=== PATIENT | male | born 1975 | race American Indian/Alaskan Native ===

== ENCOUNTER 2019-11-29 21:33 | Emergency (ER) | payer SELFPAY ==
[2019-11-29 21:45] VITALS: BP 144/84
--- NOTE | 2019-11-29 23:53 | XRay Report ---
EXAMINATION: Right knee radiograph, 3 views CLINICAL INFORMATION: Right knee pain and swelling. Knee injury one week ago COMPARISON: None. FINDINGS: There is no evidence of acute bony fracture or focal soft tissue swelling of the right knee . There are mild bony degenerative changes of the patella. Signer Name: Nette Ruiz MD Signed: 11/29/2019 11:49 PM Workstation Name: [id number]
--- NOTE | 2019-11-30 00:03 | Emergency Department Report ---
ED Lower Extremity HPI - General Chief Complaint: Extremity Injury, Lower Stated Complaint: KNEE PAIN Time Seen by Provider: 11/29/19 23:50 Source: patient Mode of arrival: Ambulatory Limitations: No Limitations - History of Present Illness Initial Comments: Patient is a 43-year-old male that presents emergency room with complaints of right knee pain and swelling for a week. Patient states he was working and twisted his knee while washing a car. Patient states the pain is an 8 out of 10. Pain states the pain is worse with movement better with rest. Patient states he is taking 200 mg twice in the last week. Patient states he got some relief from the ibuprofen. Patient denies chest pain or shortness of breath. Patient denies fall. Patient denies trauma. MD Complaint: knee injury -: Sudden Injury: Knee: Right Type of Injury: inversion Place: work Severity: severe Severity scale (0 -10): 8 Improves With: NSAID, immobilization, rest Worsens With: weight bearing, movement, palpation Context: other Associated Symptoms: swelling, able to partially bear weight. denies: snap/pop sensation, numbness, tingling, unable to bear weight, ambulatory - Related Data Previous Rx's Medication Instructions Recorded Last Taken Type Ibuprofen [Motrin 800 MG tab] 800 mg PO Q8HR PRN #30 tablet 11/30/19 Unknown Rx Allergies Allergy/AdvReac Type Severity Reaction Status Date / Time No Known Allergies Allergy Unverified 11/29/19 21:45 ED Review of Systems ROS: Stated complaint: KNEE PAIN Other details as noted in HPI Comment: All other systems reviewed and negative ED Past Medical Hx - Past Medical History Previous Medical History?: No - Surgical History Past Surgical History?: No - Family History Family history: no significant - Social History Smoking Status: Current Every Day Smoker Substance Use Type: None - Medications Home Medications: Home Medications Medication Instructions Recorded Confirmed Last Taken Type Ibuprofen [Motrin 800 MG tab] 800 mg PO Q8HR PRN #30 tablet 11/30/19 Unknown Rx ED Physical Exam - General Limitations: No Limitations General appearance: alert, in no apparent distress - Head Head exam: Present: atraumatic, normocephalic - Eye Eye exam: Present: normal appearance - ENT ENT exam: Present: mucous membranes moist - Neck Neck exam: Present: normal inspection - Respiratory Respiratory exam: Present: normal lung sounds bilaterally. Absent: respiratory distress, wheezes, rales, rhonchi - Cardiovascular Cardiovascular Exam: Present: regular rate, normal rhythm. Absent: systolic murmur, diastolic murmur, rubs, gallop - GI/Abdominal GI/Abdominal exam: Present: soft, normal bowel sounds - Rectal Rectal exam: Present: deferred - Extremities Exam Extremities exam: Present: normal inspection (Except right knee), full ROM (Except right knee), tenderness (Right knee tenderness to palpation), joint swelling (Right knee swelling) - Back Exam Back exam: Present: normal inspection - Neurological Exam Neurological exam: Present: alert, oriented X3 - Psychiatric Psychiatric exam: Present: normal affect, normal mood - Skin Skin exam: Present: warm, dry, intact, normal color. Absent: rash ED Course Vital Signs 11/29/19 21:39 Temperature 98.7 F Pulse Rate 91 H Respiratory 18 Rate Blood Pressure 144/84 O2 Sat by Pulse 98 Oximetry - Reevaluation(s) Reevaluation #1: I discussed all results and clinical findings with patient. I discussed plan of care with patient. Patient agrees with plan of care. Patient is stable for discharge. Patient will be discharged home. Patient given discharge instru ctions. Patient voiced understanding of discharge instructions. 11/30/19 00:02 ED Lower Extremity MDM - Radiology Data Radiology results: report reviewed, image reviewed interpreted by me: EXAMINATION: Right knee radiograph, 3 views CLINICAL INFORMATION: Right knee pain and swelling. Knee injury one week ago COMPARISON: None. FINDINGS: There is no evidence of acute bony fracture or focal soft tissue swelling of the right knee. There are mild bony degenerative changes of the patella - Medical Decision Making Patient is a 43-year-old male that presents emergency room with complaints of right knee swelling and pain. Patient had x-ray which was negative for acute f indings. Patient is stable for discharge. Patient be discharged home. Patient is to follow-up with an orthopedist and his primary care soon as possible. Patient needs to take ibuprofen and apply an Pa wrap. - Differential Diagnosis Knee sprain, knee pain, sprain, strain, fracture Critical care attestation.: If time is entered above; I have spent that time in minutes in the direct care of this critically ill patient, excluding procedure time. ED Disposition Clinical Impression: Knee sprain, Knee pain Disposition: TO HOME OR SELFCARE Is pt being admited?: No Does the pt Need Aspirin: No Condition: Stable Instructions: Knee Pain (ED), Knee Sprain (ED) Additional Instructions: Patient to follow-up with primary care in 2 to 3 days. Patient to follow-up with orthopedist in 2 to 3 days. Patient to rest. Patient to increase water. Patient to avoid strenuous exercise or heavy lifting until cleared by orthopedist. Patient to take Tylenol or ibuprofen as needed for pain. Patient to take meds as directed. Patient to return to the ER if condition worsens, changes or new symptoms arise. Prescriptions: Ibuprofen [Motrin 800 MG tab] 800 mg PO Q8HR PRN #30 tablet PRN Reason: pain Referrals: PRIMARY CAREMD [Primary Care Provider] - 2-3 Days ALEXIS POLANCO MD [Staff Physician] - 2-3 Days Time of Disposition: 00:04
== END 2019-11-30 00:10 | disposition home or self-care (01) ==
LOC: ED 21:33
DX: S83.91XA Sprain of unspecified site of right knee, initial encounter (principal); F17.200 Nicotine dependence, unspecified, uncomplicated; Z79.899 Other long term (current) drug therapy; X50.1XXA Overexertion from prolonged static or awkward postures, initial encounter; Y93.89 Activity, other specified; Y92.89 Other specified places as the place of occurrence of the external cause; Y99.8 Other external cause status